=== PATIENT | female | born 1950 | race Caucasian/White ===

== ENCOUNTER 2017-01-08 20:46 | Inpatient (IN) | payer MEDICARE, OTHER ==
[~2017-01-08] VITALS: Ht 152.4 cm; Wt 80.7 kg
[~2017-01-08 20:46] MED LIST: ALDACTONE25 MG PO; BUMEX1 MG PO; CERTAGEN1 EACH PO; DIABETA2.5 MG PO; DUONEB 2.5-0.5M1 AMP NEB; ESTRACE1 M1 PO; KLONOPIN0.5 MG PO; LIPITOR20 MG PO; METFORMIN HCL500 MG PO; NORCO 10-325 T1 EACH PO; OS-CAL+D500 MG PO; SYMBICORT 1601 PUFFS INH; TOPROL XL 50 MG50 MG PO; XARELTO20 MG PO
[2017-01-08 22:02] LABS: BASOPHIL 0.7 % (0-2); EOSINOPHIL 2.2 % (0-7); HGB 11.7 g/dl (12.5-16.0); LYMPHOCYTE 20.6 % (15-48); MCH 34.4 pg (25.0-31.0); MCHC 34.4 g/dL (32.0-36.0); MONOCYTE 14.8 % (0-12); MPV 9.4 fL (6.0-9.5); NEUTROPHIL 61.7 % (41-80); PLT 287 K/uL (150-400); RDW 12.2 % (11.5-14.0); WBC 14.4 K/uL (4.0-10.5)
[2017-01-08 22:15] LABS: LACTIC ACID 2.2 mmol/L (0.5-2.2)
[2017-01-08 22:18] LABS: ALBUMIN 3.9 g/dL (3.4-4.8); BILIRUBIN - TOTAL 0.4 mg/dL (0.1-1.0); CREATININE 0.8 mg/dL (0.5-1.0); GLOBULIN (CALCULATION) 3.5 g/dL (2.2-4.2); POTASSIUM 4.3 mmol/L (3.5-5.1); TOTAL PROTEIN 7.4 g/dL (6.4-8.3)
[2017-01-08 22:19] LABS: TROPONIN T < 0.010 ng/mL
[2017-01-08 22:20] LABS: PRO-BNP 1569 pg/mL (0-125)
[2017-01-08 22:52] LABS: BILIRUBIN NEGATIVE (NEGATIVE); BLOOD TRACE-INTACT Ery/uL (NEGATIVE); CLARITY CLEAR (CLEAR); COLOR YELLOW (YELLOW); GLUCOSE (U) NORMAL (NORMAL); KETONE (U) NEGATIVE (NEGATIVE); LEUKOCYTES NEGATIVE Leu/uL (NEGATIVE); NITRITE NEGATIVE (NEGATIVE); PROTEIN NEGATIVE (NEGATIVE); UROBILINOGEN 0.2 mg/dL (0.2-1.0)
[2017-01-08 22:57] LABS: BACTERIA TRACE
[2017-01-09 04:03] LABS: BASOPHIL 0.8 % (0-2); EOSINOPHIL 2.6 % (0-7); HCT 30.9 % (37.0-47.0); HGB 10.5 g/dl (12.5-16.0); LYMPHOCYTE 19.1 % (15-48); MCH 34.3 pg (25.0-31.0); MONOCYTE 14.6 % (0-12); MPV 9.3 fL (6.0-9.5); NEUTROPHIL 62.9 % (41-80); PLT 283 K/uL (150-400); RBC 3.06 M/uL (4.20-5.40); RDW 12.1 % (11.5-14.0); WBC 13.1 K/uL (4.0-10.5)
[2017-01-09 04:14] LABS: INR 1.32 (0.9-1.2); PROTHROMBIN TIME 15.9 SECONDS (11.7-14.0); PTT 39.4 SECONDS (23.2-31.4)
[2017-01-09 04:23] LABS: ALBUMIN 3.8 g/dL (3.4-4.8); CKMB 1.52 ng/mL (0.97-4.94); CREATININE 0.7 mg/dL (0.5-1.0); GLOBULIN (CALCULATION) 2.3 g/dL (2.2-4.2); POTASSIUM 4.6 mmol/L (3.5-5.1); TOTAL PROTEIN 6.1 g/dL (6.4-8.3); TROPONIN T < 0.010 ng/mL
[2017-01-09 04:54] LABS: BILIRUBIN - TOTAL 0.3 mg/dL (0.1-1.0)
[2017-01-09 10:27] LABS: CKMB 1.65 ng/mL (0.97-4.94); TROPONIN T < 0.010 ng/mL
[2017-01-10 06:52] LABS: HCT 30.7 % (37.0-47.0); HGB 10.1 g/dl (12.5-16.0); MCH 33.4 pg (25.0-31.0); MCHC 32.9 g/dL (32.0-36.0); MCV 101.7 fL (78.0-100.0); MPV 8.6 fL (6.0-9.5); RBC 3.02 M/uL (4.20-5.40); WBC 11.8 K/uL (4.0-10.5)
[2017-01-10 07:11] LABS: CREATININE 0.5 mg/dL (0.5-1.0); POTASSIUM 4.5 mmol/L (3.5-5.1)
--- NOTE | 2017-01-10 10:05 | NUR ---
REPORT CALLED TO [facility] AT 0915, PT TRANSPORTED TO MED SURG VIA WHEELCHAIR, NO DISTRESS NOTED, VSS AT THIS TIME
== END 2017-01-11 11:23 | disposition home or self-care (01) | DRG 871 ==
LOC: FER 20:46 → FMS 23:22 → FER 23:22 → FTCU 23:25 → FMS 23:25
PROVIDERS: Emergency Medicine; Internal Medicine; ADMIT Internal Medicine
DX: A41.9 Sepsis, unspecified organism (principal); J15.9 Unspecified bacterial pneumonia; I95.9 Hypotension, unspecified; I50.32 Chronic diastolic (congestive) heart failure; I48.91 Unspecified atrial fibrillation; G47.33 Obstructive sleep apnea (adult) (pediatric); J44.9 Chronic obstructive pulmonary disease, unspecified; E11.9 Type 2 diabetes mellitus without complications; I10 Essential (primary) hypertension; E78.5 Hyperlipidemia, unspecified; Z95.2 Presence of prosthetic heart valve; Z79.01 Long term (current) use of anticoagulants; Z95.0 Presence of cardiac pacemaker; F32.9 Major depressive disorder, single episode, unspecified; F41.1 Generalized anxiety disorder; R42 Dizziness and giddiness; Z90.710 Acquired absence of both cervix and uterus; Z83.3 Family history of diabetes mellitus; F17.210 Nicotine dependence, cigarettes, uncomplicated; K57.90 Diverticulosis of intestine, part unspecified, without perforation or abscess without bleeding; R65.20 Severe sepsis without septic shock
CPT/HCPCS: 36415; 36600; 71010; 71020; 80048; 80053; 81001; 82550; 82553; 82803; 82962; 83036; 83605; 83880; 84443; 84484; 85025; 85610; 85730; 87040; 93005; 94010; 94640; 94667; 94668; J0456; J1956